=== PATIENT | female | born 1955 | race Caucasian/White ===

== ENCOUNTER → 2018-01-17 | Day surgery (SDC) | payer OTHER ==
[~2018-01-17] MED LIST: BUPIVACAINE HCL 0.75% INJ/PF (7.5 MG/1 ML) 10 ML SDV OS PRN; CHONDR SU A NA/HYALUR INTRAOC KIT (SURGICARE) ONE; EPINEPHRINE INJ/PF 1 MG/1 ML AMPULE ONE; KETOROLAC TROMETHAMINE 0.45% 4 DROP/0.4 ML DROPERETTE OS PRN; LIDOCAINE 1% INJ-PF (10 MG/ML) 30 ML SDV ONE; LIDOCAINE 4% INJ/PF (40 MG/ML) 5 ML AMPUL OS PRN; MIDAZOLAM 2 MG/2 ML INJ ONE; TOBRAMYCIN SULFATE/DEXAMETH OPH SUSP 2.5 ML ONE
[2018-01-17] MEDS: TETRACAINE HCL 0.5% OPH SOLN 0.6 ML DROPERETTE OS PRN ×2 (10:46→11:10)
[2018-01-17] MEDS: TROPICAMIDE 1% OPH SOLN 3 ML OS PRN ×3 (10:47→11:10)
[2018-01-17] MEDS: CYCLOPENTOLATE 0.2%/PHENYLEPHRINE 1% OPH SOLN 2 ML OS PRN ×3 (10:47→11:10)
[2018-01-17] MEDS: TOBRAMYCIN SULFATE/DEXAMETH OPH SUSP 2.5 ML OS PRN ×3 (10:48→11:54)
--- NOTE | 2018-01-17 12:13 | [facility] DISCHARGE SUMMARY E ---
[facility] Discharge Summary NAME: LORETTA SCHWARTZ AGE: 62Y ADMITTED: 01/17/2018 DISCHARGED: 01/17/2018 HOSPITAL COURSE: The patient is a 62-year-old lady who underwent uneventful cataract extraction with toric intraocular lens implant, left eye on 01/17/2018. She will be discharged to home. She was instructed to resume preoperative medications, to take Tylenol as needed for discomfort, to keep her eye shielded, to use TobraDex and Ilevro at 3:00 p.m. and 8:00 p.m., and to follow up in my office in 1 day. DICTATING PHYSICIAN: DALE SINGH M.D. [id number] PHY#: [id number] ID: [id number] JOB#: [id number] ACCT: [id number] cc:DALE SINGH M.D. >
--- NOTE | 2018-01-17 12:13 | [facility] OPERATIVE REPORT E ---
[facility] Operative Report NAME: LORETTA SCHWARTZ AGE: 62Y DATE OF SURGERY: 01/17/2018 ROOM: PREOPERATIVE DIAGNOSIS: Cataract, left eye. POSTOPERATIVE DIAGNOSIS: Cataract, left eye. PROCEDURE PERFORMED: Phacoemulsification with toric intraocular lens implant, left eye. SURGEON: DALE SINGH MD ANESTHESIA: Topical with MAC plus interocular. INDICATIONS FOR SURGERY: Difficulty with night driving. BEST CORRECTED VISUAL ACUITY: 20/50. DESCRIPTION OF PROCEDURE: The patient was brought to the operating room and placed on the operative table. Following tetracaine drops, topical anesthesia was administered. This consisted of instrument wipe pledgets soaked in a solution of 4% Xylocaine mixed with 0.75% Marcaine in a 1:2 ratio. A 2 x 1 cm pledget was placed in the superior fornix. A 1 x 1 cm pledget was placed in the inferior fornix. The eye was patched shut for 5 minutes. The patch was removed. The eye was sterilely prepped and draped in the usual manner. Lid speculum was placed in the eye. The pledgets were removed, 4-0 black silk sutures were placed around the superior and the inferior rectus muscles to be used as traction. A conjunctival peritomy was made at the 10 o'clock position. Hemostasis was obtained with bipolar cautery. A posterior limbal groove was created using a crescent knife and dissected anteriorly towards the cornea. A sharp point blade was used to create a paracentesis site at the 2 o'clock position. A 2.4 mm keratome was used to enter the anterior chamber through the groove. Viscoelastic was injected into the anterior chamber. An anterior capsulotomy was performed using Utrata forceps in a capsulorrhexis fashion. Hydrodissection and hydrodelineation were performed. Phacoemulsification was performed in dgbnrm-bof-rfxzqil technique. Total phaco time: 7.1 CDE. Following this, the I/A unit was used to remove residual cortex. Viscoelastic was injected into the capsular bag. Intraocular lens Model SN6AT4, 10.5 diopters, serial number [id number] was placed in the capsular bag. The I/A unit was used to remove residual viscoelastic. The wound was seen to be watertight under high and low pressure, and no sutures were placed. The intraocular lens was well centered. The pressure was adjusted in the eye to normal pressure. The 4-0 black silk sutures and lid speculum were removed. The eye was shielded after Besivance drops were placed. The patient tolerated the procedure well and was sent to the recovery room in good condition. Prior to the operation, the patient was placed in the seated position and the 0, 270, and 180 degree axes were marked on the eye. Prior to placing the implant, the previously marked sites were used as reference and the 20 degree axis was marked on that eye. The intraocular lens was centered at this axis. DICTATING PHYSICIAN: DALE SINGH M.D. [id number] PHY#: [id number] ID: [id number] JOB#: [id number] ACCT: [id number] cc:DALE SINGH M.D. > MTDD
== END ==
LOC: SC 10:29
PROVIDERS: ATTEND Ophthalmology
PROC: 08RK3JZ Replacement of Left Lens with Synthetic Substitute, Percutaneous Approach (ICD-10-PCS; principal; 2018-01-17 12:00)
DX: H25.813 Combined forms of age-related cataract, bilateral (principal); H04.123 Dry eye syndrome of bilateral lacrimal glands; H43.813 Vitreous degeneration, bilateral; I10 Essential (primary) hypertension; I48.91 Unspecified atrial fibrillation; Z88.8 Allergy status to other drugs, medicaments and biological substances; Z88.5 Allergy status to narcotic agent
CPT/HCPCS: 66984; V2787; J2250; J3490 ×5; J0171; 142

== ENCOUNTER 2018-02-07 11:26 | Day surgery (SDC) | payer OTHER ==
[~2018-02-07 11:26] MED LIST changes: +BUPIVACAINE HCL 0.75% INJ/PF (7.5 MG/1 ML) 10 ML SDV OD PRN; -BUPIVACAINE HCL 0.75% INJ/PF (7.5 MG/1 ML) 10 ML SDV OS PRN; +KETOROLAC TROMETHAMINE 0.45% 4 DROP/0.4 ML DROPERETTE OD PRN; -KETOROLAC TROMETHAMINE 0.45% 4 DROP/0.4 ML DROPERETTE OS PRN; +LIDOCAINE 4% INJ/PF (40 MG/ML) 5 ML AMPUL OD PRN; -LIDOCAINE 4% INJ/PF (40 MG/ML) 5 ML AMPUL OS PRN; -MIDAZOLAM 2 MG/2 ML INJ ONE; -TOBRAMYCIN SULFATE/DEXAMETH OPH SUSP 2.5 ML ONE
[2018-02-07] MEDS: TETRACAINE HCL 0.5% OPH SOLN 0.6 ML DROPERETTE OD PRN ×2 (11:41→12:10)
[2018-02-07] MEDS: TROPICAMIDE 1% OPH SOLN 3 ML OD PRN ×3 (11:42→12:08)
[2018-02-07] MEDS: TOBRAMYCIN SULFATE/DEXAMETH OPH SUSP 2.5 ML OD PRN ×4 (11:42→13:03)
[2018-02-07] MEDS: CYCLOPENTOLATE 0.2%/PHENYLEPHRINE 1% OPH SOLN 2 ML OD PRN ×3 (11:42→12:08)
[2018-02-07] MEDS ORDERED: MIDAZOLAM 2 MG/2 ML INJ ONE (12:07)
[2018-02-07] MEDS ORDERED: FENTANYL CITRATE INJ/PF 100 MCG/2 ML AMPUL ONE (12:08)
--- NOTE | 2018-02-07 15:59 | [facility] OPERATIVE REPORT E ---
[facility] Operative Report NAME: LORETTA SCHWARTZ AGE: 62Y DATE OF SURGERY: 02/07/2018 ROOM: [facility] [place] Operative Report PREOPERATIVE DIAGNOSIS: CATARACT, RIGHT EYE, ASTIGMATISM RIGHT EYE. POSTOPERATIVE DIAGNOSIS: CATARACT, RIGHT EYE, ASTIGMATISM RIGHT EYE. PROCEDURE PERFORMED: PHACOEMULSIFICATION WITH TORIC INTRAOCULAR LENS IMPLANT, RIGHT EYE. SURGEON: DALE SINGH MD ANESTHESIA: TOPICAL WITH MAC PLUS INTRAOCULAR LIDOCAINE. INDICATIONS FOR SURGERY: Optical imbalance following cataract surgery on the left eye. Best corrected visual acuity 20/60. PROCEDURE: Patient was placed in the seated position and the 0, 270, and 180-degree axis was marked on the eye using a marking level. Prior to placing the lens implant, the 150-degree axis was marked on the eye, and the lens was centered at this axis. The patient was brought to the Operating Room and placed on the operative table. Following tetracaine drops, topical anesthesia was administered. This consisted of instrument wipe pledgets soaked in a solution of 4% Xylocaine mixed with 0.75% Marcaine in a 1:2 ratio. A 2 x 1 cm pledget was placed in the superior fornix. A 1 x 1 cm pledget was placed in the inferior fornix. The eye was patched shut for 5 minutes. The patch was removed. The eye was sterilely prepped and draped in the usual manner. Lid speculum was placed in the eye. The pledgets were removed. 4-0 black silk sutures were placed around the superior and the inferior rectus muscles to be used as traction. A conjunctival peritomy was made at the 10 o'clock position. Hemostasis was obtained with bipolar cautery. A posterior limbal groove was created using a crescent knife and dissected anteriorly towards the cornea. A sharp point blade was used to create a paracentesis site at the 2 o'clock position. A 2.4 mm keratome was used to enter the anterior chamber through the groove. Viscoelastic was injected into the anterior chamber. An anterior capsulotomy was performed using Utrata forceps in a capsulorrhexis fashion. Hydrodissection and hydrodelineation were performed. Phacoemulsification was performed in enuhdb-drj-rqffixw technique. A total of 3.79 CDE seconds phaco time was used. Following this, the I/A unit was used to remove residual cortex. Viscoelastic was injected into the capsular bag. Intraocular lens model SN6AT3, 12.0 diopters, serial number [id number] was placed in the capsular bag. The I/A unit was used to remove residual viscoelastic. The wound was seen to be watertight under high and low pressure, and no sutures were placed. The intraocular lens was well centered. The pressure was adjusted in the eye to normal pressure. The 4-0 black silk sutures and lid speculum were removed. The eye was shielded after Besivance drops were placed. The patient tolerated the procedure well and was sent to the Recovery Room in good condition. ADDENDUM: No Besivance was used. TobraDex was placed in the eye at the end of the surgery. DICTATING PHYSICIAN: DALE SINGH M.D. [id number] PHY#: [id number] ID: [id number] JOB#: [id number] ACCT: [id number] cc:DALE SINGH M.D. >
--- NOTE | 2018-02-07 16:51 | DISCHARGE SUMMARY E ---
Discharge Summary NAME: LORETTA SCHWARTZ : 1955 AGE: 62Y ADMITTED: 02/07/2018 DISCHARGED: HOSPITAL COURSE: The patient is a 62-year-old lady who underwent uneventful cataract extraction with Toric intraocular lens implant right eye on 02/07/2018. She will be discharged to home. She is instructed to resume preoperative medications, take Tylenol as needed for discomfort, to keep her eye shielded. She is to use TobraDex and Ilevro at 3 p.m. and 8 p.m., and to follow up in my office in 1 day. DICTATING PHYSICIAN: DALE SINGH M.D. [id number] PHY#: [id number] ID: [id number] JOB#: [id number] ACCT: [id number] cc:DALE SINGH M.D. >
== END 2018-02-07 13:36 | disposition home or self-care (01) ==
LOC: SC 11:26
PROVIDERS: ATTEND Ophthalmology
PROC: 08RJ3JZ Replacement of Right Lens with Synthetic Substitute, Percutaneous Approach (ICD-10-PCS; principal; 2018-02-07 13:00)
DX: H25.811 Combined forms of age-related cataract, right eye (principal); I48.91 Unspecified atrial fibrillation; Z96.1 Presence of intraocular lens; Z79.82 Long term (current) use of aspirin; Z88.1 Allergy status to other antibiotic agents; Z91.040 Latex allergy status
CPT/HCPCS: 66984; V2787; J2250; J3490 ×4; J0171; J3010; 142